=== PATIENT | female | born 1965 ===

== ENCOUNTER → 2017-01-01 | Outpatient (REF) | payer SELFPAY ==
[2017-01-01 20:10] LABS: CREATININE FOR GFR 0.88 MG/DL (0.55-1.02); GLOMERULAR FILTRATION RATE > 60.0 (>51); IMMUNOGLOBULIN G 824 MG/DL (681-1648)
== END ==
LOC: M LAB REF 14:55
PROVIDERS: ATTEND Allergy & Immunology
DX: D80.1 Nonfamilial hypogammaglobulinemia (principal); J32.9 Chronic sinusitis, unspecified; M05.40 Rheumatoid myopathy with rheumatoid arthritis of unspecified site; E11.9 Type 2 diabetes mellitus without complications; L94.0 Localized scleroderma [morphea]